=== PATIENT | male | born 1970 | race Caucasian/White ===

== ENCOUNTER 2018-05-07 15:23 | Emergency (ER) | payer OTHER ==
[2018-05-07 18:09] LABS: ABSOLUTE EOSINOPHILS # (AUTO) 0.1 10^3/uL (0.0-0.6); ABSOLUTE LYMPHOCYTES (AUTO) 0.7 10^3/uL (0.5-4.7); ABSOLUTE MONOCYTES (AUTO) 0.5 10^3/uL (0.1-1.4); ABSOLUTE NEUT (AUTO) 5.7 10^3/uL (1.7-8.2); BASOPHILS % (AUTO) 0.6 % (0-2); HEMATOCRIT 39.9 % (37.9-51.0); HEMOGLOBIN 13.5 g/dL (13.5-17.0); LYMPHOCYTES % (AUTO) 10.5 % (13-45); MEAN CORPUSCULAR HEMOGLOBIN 29.8 pg (27.0-33.4); MEAN CORPUSCULAR HGB CONC 33.8 g/dL (32.0-36.0); MEAN CORPUSCULAR VOLUME 88 fl (80-97); MONOCYTES % (AUTO) 6.8 % (3-13); RED BLOOD COUNT 4.52 10^6/uL (4.35-5.55); RED CELL DISTRIBUTION WIDTH 16.7 % (11.5-14.0); SEGMENTED NEUTROPHILS % (AUTO) 81.1 % (42-78); TOTAL CELLS COUNTED % (AUTO) 100 %; WHITE BLOOD COUNT 7.1 10^3/uL (4.0-10.5)
[2018-05-07 18:20] LABS: ALANINE AMINOTRANSFERASE 21 U/L (21-72); ALBUMIN 4.1 g/dL (3.5-5.0); ALKALINE PHOSPHATASE 110 U/L (38-126); ANION GAP 8 (5-19); ASPARTATE AMINO TRANSFERASE 34 U/L (17-59); BILIRUBIN,DIRECT 0.5 mg/dL (0.0-0.4); BILIRUBIN,TOTAL 1.9 mg/dL (0.2-1.3); BLOOD UREA NITROGEN 23 mg/dL (7-20); CALCIUM 9.2 mg/dL (8.4-10.2); CARBON DIOXIDE 24 mmol/L (22-30); CHLORIDE 111 mmol/L (98-107); GLUCOSE 96 mg/dL (75-110); LIPASE 157.2 U/L (23-300); POTASSIUM 5.6 mmol/L (3.6-5.0); SODIUM 142.5 mmol/L (137-145); TOTAL PROTEIN 7.6 g/dL (6.3-8.2)
[2018-05-07 18:38] LABS: PLATELET COUNT 77 10^3/uL (150-450)
[2018-05-07 19:38] LABS: APPEARANCE,URINE CLEAR; BILIRUBIN,URINE NEGATIVE (NEGATIVE); COLOR,URINE YELLOW; GLUCOSE, URINE NEGATIVE (NEGATIVE); KETONES,URINE TRACE mg/dL (NEGATIVE); LEUKOCYTE ESTERASE,URINE NEGATIVE (NEGATIVE); NITRITE,URINE NEGATIVE (NEGATIVE); PROTEIN,URINE NEGATIVE (NEGATIVE); URINE SPECIFIC GRAVITY 1.019
[2018-05-07] MEDS ORDERED: NORMAL SALINE 1000 ML 1,000 ML IV ONE (20:05)
[2018-05-07] MEDS ORDERED: PROMETHAZINE HCL INJ 25 MG/1 ML VIAL IV ONE (20:05)
[2018-05-07] MEDS ORDERED: OCTREOTIDE ACETATE INJ/PF 100 MCG/1 ML SDV IV ONE (20:06)
[2018-05-07] MEDS ORDERED: PANTOPRAZOLE SODIUM 40 MG VIAL IV ONE (20:08)
[2018-05-07] MEDS ORDERED: NORMAL SALINE 500 ML with OCTREOTIDE ACETATE 500 MCG IV PRN ×2 (20:08)
[2018-05-07] MEDS ORDERED: PANTOPRAZOLE SODIUM 40 MG VIAL IV PRN (20:09)
--- NOTE | 2018-05-07 20:13 | ER Document Report ---
ED Medical Screen (RME) - General Chief Complaint: Nausea/Vomiting Stated Complaint: NAUSEA Notes: Patient is a 47-year-old male with an extensive history of variceal bleeding with cirrhosis. States today he had 2 episodes of dark black stool and also vomited bright red blood. Patient states he did take at home Phenergan and the vomiting has since stopped. Patient states he has some minor epigastric abdominal pain at this time. Patient initially wanted to leave the emergency room AMA and then vomited once in the sink. I witnessed the vomiting and did see that it was bright red and had clots in nature. 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 Hoffman states he has not seen him for over a year and a half. GENERAL: Alert, interacts well. No acute distress. Pallor noted ABDOMEN: Soft, generalized tenderness all 4 quadrants and epigastric region non-distended. Bowel sounds present in all 4 quadrants. I have greeted and performed a rapid initial assessment of this patient. A comprehensive ED assessment and evaluation of the patient, analysis of test results and completion of the medical decision making process will be conducted by additional ED providers. TRAVEL OUTSIDE OF THE [place] IN LAST 30 DAYS: No - Related Data Allergies/Adverse Reactions: Penicillins Allergy (Verified 05/07/18 15:43) Past Medical History - Past Medical History Cardiac Medical History: Reports: Hx Hypertension Denies: Hx Coronary Artery Disease, Hx Heart Attack Pulmonary Medical History: Reports: Hx Pneumonia - YEARS AGO Denies: Hx Asthma, Hx Bronchitis Neurological Medical History: Denies: Hx Cerebrovascular Accident, Hx Seizures Renal/ Medical History: Denies: Hx Peritoneal Dialysis Musculoskeltal Medical History: Reports Hx Arthritis - B/L HANDS Psychiatric Medical History: Reports: Hx Depression, Hx Schizophrenia - anti social behavior Past Surgical History: Reports: Hx Orthopedic Surgery - right leg - Immunizations Hx Diphtheria, Pertussis, Tetanus Vaccination: Yes Physical Exam - Vital signs Vitals: Temp Pulse Resp BP Pulse Ox 98.2 F 97 18 122/88 H 100 05/07/18 16:14 05/07/18 16:14 05/07/18 16:14 05/07/18 16:14 05/07/18 16:14 Course - Vital Signs Vital signs: Temp Pulse Resp BP Pulse Ox 98.2 F 97 18 122/88 H 100 05/07/18 16:14 05/07/18 16:14 05/07/18 16:14 05/07/18 16:14 05/07/18 16:14 - Laboratory Result Diagrams: 05/07/18 17:51 05/07/18 17:51 Laboratory results interpreted by me: 05/07/18 05/07/18 05/07/18 17:51 17:51 18:03 RDW 16.7 H Plt Count 77 L Seg Neutrophils % 81.1 H Lymphocytes % 10.5 L Potassium 5.6 H Chloride 111 H BUN 23 H Total Bilirubin 1.9 H Direct Bilirubin 0.5 H Urine Ketones TRACE H Urine Urobilinogen 4.0 H Doctor's Discharge - Discharge Referrals: FELICIANO BLAND MD [Primary Care Provider] - Follow up as needed
--- NOTE | 2018-05-07 21:31 | ER Document Report ---
ED General - General Chief Complaint: Nausea/Vomiting Stated Complaint: NAUSEA Time Seen by Provider: 05/07/18 20:13 Notes: Patient is a 47-year-old male with a past medical history of alcoholic liver cirrhosis, does not currently drink anymore has a history of esophageal varices with one previous episode of large-volume hematemesis requiring blood transfusion and hospitalization in the ICU for over 1 week who presents with 2 small volume episodes of hematemesis as well as several melanotic stools over the last 12 hours. The patient describes a mild, aching, constant upper abdominal discomfort. Nothing improves or worsens the discomfort. He and his report that his symptoms are similar to when he had a variceal bleed in the past although not nearly as severe. The patient does note some mild lightheadedness when going from a sitting to standing position. He does not take any form of anticoagulation. TRAVEL OUTSIDE OF THE [place] IN LAST 30 DAYS: No - Related Data Allergies/Adverse Reactions: Penicillins Allergy (Verified 05/07/18 15:43) Past Medical History - General Information source: Patient - Social History Smoking Status: Current Every Day Smoker Frequency of alcohol use: Rare Drug Abuse: None Lives with: Spouse/Significant other Family History: Reviewed & Not Pertinent Patient has suicidal ideation: No Patient has homicidal ideation: No - Past Medical History Cardiac Medical History: Reports: Hx Hypertension Denies: Hx Coronary Artery Disease, Hx Heart Attack Pulmonary Medical History: Reports: Hx Pneumonia - YEARS AGO Denies: Hx Asthma, Hx Bronchitis Neurological Medical History: Denies: Hx Cerebrovascular Accident, Hx Seizures Renal/ Medical History: Denies: Hx Peritoneal Dialysis Musculoskeletal Medical History: Reports Hx Arthritis - B/L HANDS Psychiatric Medical History: Reports: Hx Depression, Hx Schizophrenia - anti social behavior Past Surgical History: Reports: Hx Orthopedic Surgery - right leg - Immunizations Hx Diphtheria, Pertussis, Tetanus Vaccination: Yes Review of Systems - Review of Systems Notes: Constitutional: Negative for fever. HENT: Negative for sore throat. Eyes: Negative for visual changes. Cardiovascular: Negative for chest pain. Respiratory: Negative for shortness of breath. Gastrointestinal: Positive for epigastric abdominal pain, hematemesis and melanotic stools Genitourinary: Negative for dysuria. Musculoskeletal: Negative for back pain. Skin: Negative for rash. Neurological: Negative for headaches, weakness or numbness. 10 point ROS negative except as marked above and in HPI. Physical Exam - Vital signs Vitals: Temp Pulse Resp BP Pulse Ox 98.2 F 97 18 122/88 H 100 05/07/18 16:14 05/07/18 16:14 05/07/18 16:14 05/07/18 16:14 05/07/18 16:14 Interpretation: Normal Notes: PHYSICAL EXAMINATION: GENERAL: Appears somewhat ill but in no acute distress HEAD: Atraumatic, normocephalic. EYES: Pupils equal round and reactive to light, extraocular movements intact, sclera anicteric, conjunctiva are normal. ENT: nares patent, oropharynx clear without exudates. Moderately dry mucous m embranes. NECK: Normal range of motion, supple without lymphadenopathy LUNGS: Breath sounds clear to auscultation bilaterally and equal. No wheezes rales or rhonchi. HEART: Regular tachycardia without murmurs ABDOMEN: Soft, nontender, normoactive bowel sounds. No guarding, no rebound. No masses appreciated. EXTREMITIES: Normal range of motion, no pitting or edema. No cyanosis. NEUROLOGICAL: No focal neurological deficits. Moves all extremities spontaneously and on command. PSYCH: Anxious, tremulous SKIN: Warm, Dry, normal turgor, no rashes or lesions noted. Course - Re-evaluation Re-evalutation: 05/07/18 21:10 Patient presents after having small volume hematemesis at home and had another episode here in the emergency department in which he did vomit up approximately 2-3 tablespoons of bright red blood that was witnessed by staff and is actually still sitting in his sink when I go into the room this is mostly bright red blood with flecks of clot. He has had 2 melanotic stools at home today. Has a history of massive volume hematemesis and almost and that context several years ago. Patient has a history of liver cirrhosis with known esophageal varices. The patient was assessed shortly after coming back to his main room. The patient has been given a bolus of octreotide and pantoprazole and started on infusions of both these medicines thereafter. His initial vitals show tachycardia, rate 119 low pressures within acceptable ranges currently 135 on 115. I did spend an extended period of time at the patient's bedside explained to the patient the need for transfer to a facility that could proceed with endoscopy more rapidly as we do not have GI product distribution specialist through the weekend. I did also contact our surgeon on-call Dr. Welch who does confirm that he does not do esophageal variceal banding. I did contact [facility] and awaiting callback for transfer. Patient is in guarded condition, will continue to reassess at regular intervals. He is currently n.p.o. 05/07/18 22:09 Patient has not had any further episodes of hematemesis. He remains moderately tachycardic although blood pressures remain within acceptable limits. I did discuss [facility], the inform they have no beds. I then spoke with Dr. Chicas at [facility] who has accepted the patient. Will continue to monitor the patient closely. 05/07/18 23:43 Patient has not had any further episodes of hematemesis. Unfortunately his heart rate has become more persistently elevated and his blood pressure has some what softened currently 101 and 76. A repeat CBC is pending. Patient has become agreeable to receiving a mild dose of anxiolysis. Will provide 1 mg of lorazepam. Continuing ongoing octreotide and Protonix infusions. Fluid bolus will be initiated. 05/08/18 01:28 Patient's hemoglobin has dropped down to 10.7. Patient has had some mild hypotension at 93 on 75, although tachycardia is moderately improving. A fluid bolus to be initiated. Type and screen has been sent. Patient remains above the transfusion threshold at this point although if his hypotension does persist we will initiate blood transfusion. 05/08/18 0145 Transport has arrived. Patient's blood pressure is continued to down trend although map remains above 65. Transport crew aware of the patient's downtr ending blood pressure. - Vital Signs Vital signs: Temp Pulse Resp BP Pulse Ox 98.7 F 97 20 84/62 L 97 05/08/18 01:46 05/07/18 21:37 05/08/18 01:48 05/08/18 01:48 05/08/18 01:48 - Laboratory Result Diagrams: 05/07/18 23:45 05/07/18 17:51 Laboratory results interpreted by me: 05/07/18 05/07/18 05/07/18 17:51 17:51 18:03 WBC RBC Hgb Hct RDW 16.7 H Plt Count 77 L Seg Neutrophils % 81.1 H Lymphocytes % 10.5 L Absolute Neutrophils Potassium 5.6 H Chloride 111 H BUN 23 H Total Bilirubin 1.9 H Direct Bilirubin 0.5 H Urine Ketones TRACE H Urine Urobilinogen 4.0 H 05/07/18 23:45 WBC 10.8 H RBC 3.55 L Hgb 10.7 L D Hct 31.6 L RDW 16.3 H Plt Count 81 L Seg Neutrophils % Lymphocytes % 12.6 L Absolute Neutrophils 8.4 H Potassium Chloride BUN Total Bilirubin Direct Bilirubin Urine Ketones Urine Urobilinogen Critical Care Note - Critical Care Note Total time excluding time spent on procedures (mins): 37 Comments: Critical care time spent obtaining history from patient or surrogate, discussions with consultants, development of treatment plan with patient or surrogate, evaluation of patient's response to treatment, examination of patient, ordering and performing treatments and interventions, ordering and review of laboratory studies, re-evaluation of patient's condition, ordering and review of radiographic studies and review of old charts Discharge - Discharge Clinical Impression: Esophageal varices Qualifiers: Esophageal varices type: secondary Esophageal varices bleeding: with bleeding Qualified Code(s): I85.11 - Secondary esophageal varices with bleeding GI bleed Qualifiers: GI bleed type/associated pathology: unspecified gastrointestinal hemorrhage type Qualified Code(s): K92.2 - Gastrointestinal hemorrhage, unspecified Condition: Fair Disposition: [facility] Referrals: FELICIANO BLAND MD [Primary Care Provider] - Follow up as needed
[2018-05-07] MEDS ORDERED: OCTREOTIDE ACETATE INJ/PF 100 MCG/1 ML SDV ONE ×2 (21:33→21:48)
[2018-05-07] MEDS ORDERED: LORAZEPAM INJ 2 MG/1 ML VIAL IV ONE (23:43)
[2018-05-07] MEDS ORDERED: RINGERS SOLUTION,LACTATED 1,000 ML IV ONE (23:43)
[2018-05-07 23:59] LABS: ABSOLUTE BASOPHILS # (AUTO) 0.1 10^3/uL (0.0-0.2); ABSOLUTE EOSINOPHILS # (AUTO) 0.1 10^3/uL (0.0-0.6); ABSOLUTE LYMPHOCYTES (AUTO) 1.4 10^3/uL (0.5-4.7); ABSOLUTE MONOCYTES (AUTO) 0.8 10^3/uL (0.1-1.4); ABSOLUTE NEUT (AUTO) 8.4 10^3/uL (1.7-8.2); BASOPHILS % (AUTO) 1.2 % (0-2); EOSINOPHILS % (AUTO) 0.9 % (0-6); HEMATOCRIT 31.6 % (37.9-51.0); LYMPHOCYTES % (AUTO) 12.6 % (13-45); MEAN CORPUSCULAR HEMOGLOBIN 30.2 pg (27.0-33.4); MEAN CORPUSCULAR VOLUME 89 fl (80-97); MONOCYTES % (AUTO) 7.3 % (3-13); RED BLOOD COUNT 3.55 10^6/uL (4.35-5.55); RED CELL DISTRIBUTION WIDTH 16.3 % (11.5-14.0); TOTAL CELLS COUNTED % (AUTO) 100 %; WHITE BLOOD COUNT 10.8 10^3/uL (4.0-10.5)
[2018-05-08 00:14] LABS: HEMOGLOBIN 10.7 g/dL (13.5-17.0); PLATELET COUNT 81 10^3/uL (150-450)
[2018-05-08] MEDS ORDERED: RINGERS SOLUTION,LACTATED 1,000 ML IV ONE (01:27)
[2018-05-08 01:51] VITALS: BP 84/62
== END 2018-05-08 02:05 | disposition short-term general hospital (02) ==
LOC: ER 15:23
DX: K70.30 Alcoholic cirrhosis of liver without ascites (principal); I85.11 Secondary esophageal varices with bleeding; R11.2 Nausea with vomiting, unspecified; I95.9 Hypotension, unspecified; R00.0 Tachycardia, unspecified; F17.200 Nicotine dependence, unspecified, uncomplicated; I10 Essential (primary) hypertension; Z88.0 Allergy status to penicillin
CPT/HCPCS: 96376; 99291; 96375; 96365; 96366; 96368; 86900; 86901; 36415; 86850; 83690; 85025; 80053; 81001; J2060; J2354; S0164; J2550; J7030; J7120 ×2

== ENCOUNTER 2018-11-30 01:57 | Observation (INO) | payer OTHER ==
[2018-11-30] MEDS ORDERED: PANTOPRAZOLE SODIUM 40 MG VIAL IV ONE (03:26)
[2018-11-30] MEDS ORDERED: ONDANSETRON HCL INJ/PF 4 MG/2 ML SDV IV ONE (03:28)
[2018-11-30] MEDS ORDERED: FAMOTIDINE INJ/PF 20 MG/2 ML SDV IV ONE (03:28)
[2018-11-30] MEDS ORDERED: TRANEXAMIC ACID INJ/PF 1,000 MG/10 ML SDV IV ONE (03:30)
[2018-11-30] MEDS ORDERED: OCTREOTIDE ACETATE INJ/PF 100 MCG/1 ML SDV IV ONE (03:31)
--- NOTE | 2018-11-30 03:58 | ER Document Report ---
ED General - General Chief Complaint: Vomiting Stated Complaint: BLACK STOOL Time Seen by Provider: 11/30/18 03:03 Primary Care Provider: FELICIANO BLAND MD [Primary Care Provider] - Follow up as needed Mode of Arrival: Ambulatory Information source: Patient, Relative TRAVEL OUTSIDE OF THE [place] IN LAST 30 DAYS: No - HPI Notes: Patient is a 48-year-old history of previous alcohol abuse but has been clean for over a year with no alcohol, history of esophageal varices and cirrhosis with variceal banding procedure x2, last one performed 7 months ago in [facility], presents to the emergency department with report of mild gas-like pain and then he vomited up bright red blood clot x2 and then the third time he vomited there was very little pink discoloration to it. He states it seemed to come from his esophagus, and was not mixed with food. He denies any chest pain or difficulty breathing. He does report mild nausea. He states 2 days ago he thought he had a dark-colored bowel movement, and it was slightly loose, althou gh he had a normal bowel movement earlier today. The patient denies any fever or chills. The patient is on no medications currently, but was previously on propranolol and Protonix and Bumex and Carafate. Patient previously had esophageal banding performed 2 years ago and then again 7 months ago. The patient was told he needed regular esophageal banding procedures done. He was unable to afford the co-pay, and has also been unable to get prescriptions for any of the medications because he could not afford the co-pay. - Related Data Allergies/Adverse Reactions: Penicillins Allergy (Verified 05/07/18 15:43) Past Medical History - General Information source: Patient - Social History Smoking Status: Unknown if Ever Smoked Chew tobacco use (# tins/day): No Frequency of alcohol use: None Drug Abuse: None Lives with: Family Family History: Reviewed & Not Pertinent Patient has suicidal ideation: No Patient has homicidal ideation: No - Past Medical History Cardiac Medical History: Reports: Hx Hypertension Denies: Hx Coronary Artery Disease, Hx Heart Attack Pulmonary Medical History: Reports: Hx Pneumonia - YEARS AGO Denies: Hx Asthma, Hx Bronchitis Neurological Medical History: Denies: Hx Cerebrovascular Accident, Hx Seizures Renal/ Medical History: Denies: Hx Peritoneal Dialysis Musculoskeletal Medical History: Reports Hx Arthritis - B/L HANDS Psychiatric Medical History: Reports: Hx Depression, Hx Schizophrenia - anti social behavior Past Surgical History: Reports: Hx Orthopedic Surgery - right leg - Immunizations Hx Diphtheria, Pertussis, Tetanus Vaccination: Yes Review of Systems - Review of Systems -: Yes All other systems reviewed and negative Physical Exam - Vital signs Vitals: Temp Pulse Resp BP Pulse Ox 98.1 F 136 H 18 117/67 99 11/30/18 02:07 11/30/18 02:07 11/30/18 02:07 11/30/18 02:07 11/30/18 02:07 - Notes Notes: PHYSICAL EXAMINATION: GENERAL: Well-appearing, well-nourished and in no acute distress. HEAD: Atraumatic, normocephalic. EYES: Pupils equal round and reactive to light, extraocular movements intact, sclera anicteric, conjunctiva are normal. ENT: Nares patent, oropharynx clear without exudates. Moist mucous membranes. NECK: Normal range of motion, supple without lymphadenopathy LUNGS: Breath sounds clear to auscultation bilaterally and equal. No wheezes rales or rhonchi. HEART: Tachycardic rate 115 and regular rhythm without murmurs ABDOMEN: Soft, nontender, nondistended abdomen. No guarding, no rebound. No masses appreciated. Rectal exam: Heme-negative. No melena. No stool in the vault. Musculoskeletal: Normal range of motion, no pitting or edema. No cyanosis. NEUROLOGICAL: Cranial nerves grossly intact. Normal speech, normal gait. Normal sensory, motor exams PSYCH: Normal mood, normal affect. SKIN: Warm, Dry, normal turgor, no rashes or lesions noted. Course - Re-evaluation Re-evalutation: 11/30/18 04:03 Patient was given IV Pepcid and IV Protonix bolus. I was unable to start the Protonix drip due to shortages. Patient was given Transexamic acid IV. The patient was also given octreotide bolus with an octreotide infusion. Patient was watched on the manager monitoring. 11/30/18 05:25 Patient was given vitamin K subcutaneous. The patient had mild coagulopathy with an INR of 1.4, consistent with previous values. Platelet count of 79 was also consistent with previous values. Hemoglobin 10.5 was consistent with prior values. There is no further hematemesis after medications. Patient was given 2 units of FFP. Discussion was undertaken with patient concerning the risk of transfusion, and he agreed after discussion of risks alternatives and benefits. We will hold back on platelet transfusion. Patient reports that he was told in May 2018 that he would need a repeat upper endoscopy to evaluate and to band the esophageal varices and 4 to 6 months. The patient is now 6 months out from his last banding. Patient has a history of " near " from esophageal variceal bleeding in the past, and the patient is unstable to go home given the recurrence of bleeding currently. It is reassuring that he is not significantly anemic and was actually heme-negative on exam. Discussion was undertaken with the patient and his significant other and they were in agreement with the patient being transferred for further care and evaluation, as GI was not not available at this facility and there was no one available for possible esophageal variceal banding. Initial call was made to [facility], but there is no available bed. 11/30/18 05:28 Call was made to [facility]. Dr. Newton accepted the patient in transfer. 11/30/18 06:21 - Vital Signs Vital signs: Temp Pulse Resp BP Pulse Ox 98.1 F 136 H 13 112/78 100 11/30/18 02:07 11/30/18 02:07 11/30/18 04:01 11/30/18 04:00 11/30/18 04:01 - Laboratory Result Diagrams: 11/30/18 03:00 11/30/18 03:00 Laboratory results interpreted by me: 11/30/18 11/30/18 11/30/18 03:00 03:00 03:00 RBC 3.67 L Hgb 10.6 L Hct 31.9 L RDW 19.2 H Plt Count 79 L Lymphocytes % 10.6 L Monocytes % 13.1 H PT 17.3 H Chloride 109 H Glucose 73 L Total Bilirubin 1.9 H Direct Bilirubin 0.6 H Albumin 3.2 L Critical Care Note - Critical Care Note Total time excluding time spent on procedures (mins): 43 Discharge - Discharge Clinical Impression: Thrombocytopenia Cirrhosis Qualifiers: Hepatic cirrhosis type: alcoholic cirrhosis Ascites presence: without ascites Qualified Code(s): K70.30 - Alcoholic cirrhosis of liver without ascites Esophageal varices with bleeding Qualifiers: Esophageal varices type: unspecified type Qualified Code(s): I85.01 - Esophageal varices with bleeding Disposition: [facility] Referrals: FELICIANO BLAND MD [Primary Care Provider] - Follow up as needed
[2018-11-30] MEDS: NORMAL SALINE 500 ML with OCTREOTIDE ACETATE 500 MCG IV PRN ×6 (04:30→18:41)
[2018-11-30 04:32] LABS: ABSOLUTE BASOPHILS # (AUTO) 0.1 10^3/uL (0.0-0.2); ABSOLUTE EOSINOPHILS # (AUTO) 0.1 10^3/uL (0.0-0.6); ABSOLUTE LYMPHOCYTES (AUTO) 0.8 10^3/uL (0.5-4.7); ABSOLUTE MONOCYTES (AUTO) 0.9 10^3/uL (0.1-1.4); ABSOLUTE NEUT (AUTO) 5.3 10^3/uL (1.7-8.2); BASOPHILS % (AUTO) 0.7 % (0-2); EOSINOPHILS % (AUTO) 1.7 % (0-6); HEMATOCRIT 31.9 % (37.9-51.0); HEMOGLOBIN 10.6 g/dL (13.5-17.0); LYMPHOCYTES % (AUTO) 10.6 % (13-45); MEAN CORPUSCULAR HGB CONC 33.3 g/dL (32.0-36.0); MEAN CORPUSCULAR VOLUME 87 fl (80-97); MONOCYTES % (AUTO) 13.1 % (3-13); RED BLOOD COUNT 3.67 10^6/uL (4.35-5.55); RED CELL DISTRIBUTION WIDTH 19.2 % (11.5-14.0); SEGMENTED NEUTROPHILS % (AUTO) 73.9 % (42-78); TOTAL CELLS COUNTED % (AUTO) 100 %; WHITE BLOOD COUNT 7.2 10^3/uL (4.0-10.5)
[2018-11-30 04:46] LABS: INTERNATIONAL RATION (INR) 1.41; PROTHROMBIN TIME 17.3 SEC (11.4-15.4)
[2018-11-30 05:00] LABS: PLATELET COUNT 79 10^3/uL (150-450)
[2018-11-30 05:05] LABS: ALBUMIN 3.2 g/dL (3.5-5.0); ALKALINE PHOSPHATASE 117 U/L (38-126); ANION GAP 7 (5-19); ASPARTATE AMINO TRANSFERASE 40 U/L (17-59); BILIRUBIN,DIRECT 0.6 mg/dL (0.0-0.4); BILIRUBIN,TOTAL 1.9 mg/dL (0.2-1.3); BLOOD UREA NITROGEN 13 mg/dL (7-20); CALCIUM 9.1 mg/dL (8.4-10.2); CARBON DIOXIDE 25 mmol/L (22-30); CHLORIDE 109 mmol/L (98-107); GLUCOSE 73 mg/dL (75-110); TOTAL PROTEIN 6.7 g/dL (6.3-8.2)
[2018-11-30] MEDS ORDERED: PHYTONADIONE INJ 10 MG/1 ML AMPULE SUBCUT ONE (05:22)
[2018-11-30] MEDS ORDERED: NORMAL SALINE 250 ML IV PRN ×2 (05:57)
[2018-11-30] MEDS ORDERED: POTASSI CL 20 MEQ/D5-1/2NS 1L 1,000 ML IV ONE (06:22)
[2018-11-30] MEDS: PANTOPRAZOLE SODIUM 40 MG VIAL IV PRN ×2 (06:29→16:20)
[2018-11-30] MEDS ORDERED: NICOTINE 21 MG/24 HR PATCH.TD24 TD ONE (09:09)
[2018-11-30] MEDS ORDERED: DEXTROSE 50%-WATER 25 GM/50 ML DISP.SYRIN IV PRN ×2 (17:26)
[2018-11-30] MEDS ORDERED: ONDANSETRON HCL INJ/PF 4 MG/2 ML SDV IV PRN (17:26)
[2018-11-30] MEDS ORDERED: GLUCAGON,HUMAN RECOMB 1 MG INJ SUBCUT PRN (17:26)
[2018-11-30] MEDS ORDERED: ACETAMINOPHEN 325 MG TABLET PO PRN (17:26)
[2018-11-30] MEDS ORDERED: DEXTROSE 40% GEL 15 GM TUBE PO PRN ×2 (17:26)
[2018-11-30] MEDS ORDERED: HYDRALAZINE HCL INJ/PF 20 MG/1 ML SDV IV PRN (17:40)
--- NOTE | 2018-11-30 17:41 | PDOC CONSULTATION ---
Consultation Consult Date: 11/30/18 Provider Consulted: ITZ CANO Consult reason:: GI bleed History of Present Illness Admission Date/PCP: 11/30/18 17:23 FELICIANO BLAND MD History of Present Illness: LISA NEWTON is a 48 year old male I am asked to see this patient who came in overnight had seen Dr Bland in the past patient denies any recent etoh use apparently had had esophageal variceal banding at [place] about half year ago came in hematemesis and melena In the ED, arrangements were made for transfer to tertiary institution on PPI and Octreotide however no beds available and the question of whether he can be managed here at [facility] repeat H/H is pending however Hgb has been relatively stable now being admitted to the Hospitalist service can plan on EGD tomorrow will probably need Propofol sedation Past Medical History Cardiac Medical History: Reports: Hypertension Denies: Coronary Artery Disease, Myocardial Infarction Pulmonary Medical History: Reports: Pneumonia - YEARS AGO Denies: Asthma, Bronchitis Neurological Medical History: Denies: Seizures Musculoskeltal Medical History: Reports: Arthritis - B/L HANDS Psychiatric Medical History: Reports: Depression Hematology: Denies: Anemia Past Surgical History Past Surgical History: Reports: Orthopedic Surgery - right leg Social History Lives with: Family Smoking Status: Unknown if Ever Smoked Frequency of Alcohol Use: Heavy Family History Family History: Reviewed & Not Pertinent Parental Family History Reviewed: Yes Children Family History Reviewed: Unknown Sibling(s) Family History Reviewed.: Unknown Medication/Allergy Home Medications: Bumetanide [Bumex 1 mg Tablet] 1 mg PO DAILY #30 tablet 06/11/15 Folic Acid [Folvite 1 mg Tablet] 1 mg PO DAILY #90 tablet 06/11/15 Pantoprazole Sodium [Protonix] 40 mg PO BID #60 tablet. 06/11/15 Promethazine HCl [Phenergan 25 mg Tablet] 1 - 2 tab PO Q6H PRN #30 tablet 06/11/15 Tiotropium [place] [Spiriva Handihaler 5 Cap/Kit (18 Mcg/Cap)] 1 cap IH DAILY #1 kit 06/11/15 Thiamine HCl [Thiamine 100 mg Tablet] 100 mg PO DAILY 08/27/15 Propranolol HCl [Inderal 10 mg Tablet] 20 mg PO Q12 08/28/15 Sucralfate [Carafate Susp 1 Gm/10 Ml Udcup] 1 gm PO Q6 08/28/15 Allergies/Adverse Reactions: Penicillins Allergy (Verified 05/07/18 15:43) Review of Systems Constitutional: ABSENT: fever(s), headache(s), night sweats Eyes: ABSENT: visual disturbances Ears: ABSENT: hearing changes Nose, Mouth, and Throat: ABSENT: mouth pain, sore throat Cardiovascular: ABSENT: edema, orthropnea Respiratory: ABSENT: dyspnea, hemoptysis Gastrointestinal: PRESENT: melena. ABSENT: dysphagia Genitourinary: ABSENT: dysuria, hematuria Musculoskeletal: ABSENT: muscle weakness Neurological: ABSENT: syncope, tingling, tremor(s), vertigo Endocrine: ABSENT: polydipsia, polyphagia, polyuria Physical Exam Vital Signs: Temp Pulse Resp BP Pulse Ox 98.1 F 97 19 122/90 H 100 11/30/18 02:07 11/30/18 13:30 11/30/18 13:30 11/30/18 13:00 11/30/18 13:30 Intake & Output 11/29/18 11/30/18 12/01/18 06:59 06:59 06:59 Intake Total 834 Balance 834 Weight 80.1 kg General appearance: PRESENT: no acute distress, well-developed, well-nourished Head exam: PRESENT: atraumatic, normocephalic Eye exam: PRESENT: EOMI, PERRLA. ABSENT: nystagmus, periorbital swelling Mouth exam: PRESENT: moist, neck supple Neck exam: ABSENT: meningismus, tenderness, thyromegaly Respiratory exam: PRESENT: symmetrical, unlabored. ABSENT: chest wall tenderness, wheezes Cardiovascular exam: PRESENT: RRR, +S1, +S2 GI/Abdominal exam: PRESENT: soft. ABSENT: Roberson's sign, rebound, rigid Extremities exam: ABSENT: clubbing, joint swelling, tenderness Musculoskeletal exam: PRESENT: full ROM Neurological exam: PRESENT: oriented to time, oriented to situation, CN II-XII grossly intact Psychiatric exam: PRESENT: appropriate affect, normal mood Focused psych exam: ABSENT: restlessness Skin exam: PRESENT: normal color. ABSENT: mottled, pallor, urticaria, vesicles Results Laboratory Results: 11/30/18 03:00 11/30/18 03:00 11/30/18 11/30/18 11/30/18 03:00 03:00 03:00 WBC 7.2 RBC 3.67 L Hgb 10.6 L Hct 31.9 L MCV 87 MCH 29.0 MCHC 33.3 RDW 19.2 H Plt Count 79 L Seg Neutrophils % 73.9 Lymphocytes % 10.6 L Monocytes % 13.1 H Eosinophils % 1.7 Basophils % 0.7 Absolute Neutrophils 5.3 Absolute Lymphocytes 0.8 Absolute Monocytes 0.9 Absolute Eosinophils 0.1 Absolute Basophils 0.1 Sodium 141.4 Potassium 4.0 Chloride 109 H Carbon Dioxide 25 Anion Gap 7 BUN 13 Creatinine 1.03 Est GFR ( Amer) > 60 Est GFR (Non-Af Amer) > 60 Glucose 73 L Calcium 9.1 Total Bilirubin 1.9 H AST 40 Alkaline Phosphatase 117 Total Protein 6.7 Albumin 3.2 L Lipase 258.4 Blood Type A NEGATIVE Antibody Screen NEGATIVE Assessment & Plan - Diagnosis (1) GI bleed Qualifiers: GI bleed type/associated pathology: unspecified gastrointestinal hemorrhage type Qualified Code(s): K92.2 - Gastrointestinal hemorrhage, unspecified Plan: plan is to admit patient here since no bed availability at another institution will follow up on H/H continue both PPI and octreotide for now patient will need EGD with possible banding in the am Risks, benefits and alternatives are discussed will need Propofol sedation INR is normal - Time Time Spent: 50 to 70 Minutes
--- NOTE | 2018-11-30 17:51 | PDOC H&P ---
History of Present Illness Admission Date/PCP: 11/30/18 17:23 FELICIANO BLAND MD Patient complains of: Came with complaints of vomiting blood and also passing blood per rectum from this morning. History of Present Illness: LISA NEWTON is a 48 year old male history of liver cirrhosis secondary to heavy alcohol use, history of variceal bleed status post banding twice, anxiety depression not on home medications, chronic smoker came to the emergency room with complaints of vomiting blood from this morning after came to the emergency room he started passing initially dark-colored blood and bright-colored blood per rectum. Hemoglobin was 10.6 at the time of presentation and he was given 3 units of FFP's. [facility] unfortunately they do not have any beds available for next 24 to 48 hours. Medical consult was called for admission and consultation with Dr. Suarez. Past Medical History Cardiac Medical History: Reports: Hypertension Denies: Coronary Artery Disease, Myocardial Infarction Pulmonary Medical History: Reports: Pneumonia - YEARS AGO Denies: Asthma, Bronchitis Neurological Medical History: Denies: Seizures GI Medical History: Reports: Cirrhosis Musculoskeltal Medical History: Reports: Arthritis - B/L HANDS Psychiatric Medical History: Reports: Depression Hematology: Denies: Anemia Past Surgical History Past Surgical History: Reports: Orthopedic Surgery - right leg, Other - Banding of the esophageal varices twice Social History Information Source: Patient Lives with: Family Smoking Status: Current Every Day Smoker Frequency of Alcohol Use: Heavy Hx Recreational Drug Use: No Hx Prescription Drug Abuse: No - Advance Directive Resuscitation Status: Full Code Family History Family History: Reviewed & Not Pertinent Parental Family History Reviewed: Yes - Mother has history of stomach cancer father has a history of lung cancer. Children Family History Reviewed: Yes Sibling(s) Family History Reviewed.: Yes Medication/Allergy Home Medications: Bumetanide [Bumex 1 mg Tablet] 1 mg PO DAILY #30 tablet 06/11/15 Folic Acid [Folvite 1 mg Tablet] 1 mg PO DAILY #90 tablet 06/11/15 Pantoprazole Sodium [Protonix] 40 mg PO BID #60 tablet. 06/11/15 Promethazine HCl [Phenergan 25 mg Tablet] 1 - 2 tab PO Q6H PRN #30 tablet 06/11/15 Tiotropium [place] [Spiriva Handihaler 5 Cap/Kit (18 Mcg/Cap)] 1 cap IH DAILY #1 kit 06/11/15 Thiamine HCl [Thiamine 100 mg Tablet] 100 mg PO DAILY 08/27/15 Propranolol HCl [Inderal 10 mg Tablet] 20 mg PO Q12 08/28/15 Sucralfate [Carafate Susp 1 Gm/10 Ml Udcup] 1 gm PO Q6 08/28/15 Allergies/Adverse Reactions: Penicillins Allergy (Verified 05/07/18 15:43) Review of Systems Constitutional: ABSENT: fatigue, fever(s), weakness Eyes: ABSENT: visual disturbances Ears: ABSENT: hearing changes Nose, Mouth, and Throat: ABSENT: sore throat Cardiovascular: ABSENT: chest pain, dyspnea on exertion, orthropnea, palpitations Respiratory: ABSENT: cough, dyspnea, hemoptysis Gastrointestinal: PRESENT: other - Came in with complaints of vomiting bright- colored blood and passing bright blood per rectum.. ABSENT: heartburn Musculoskeletal: ABSENT: joint swelling Integumentary: ABSENT: rash, wounds Neurological: ABSENT: abnormal gait, abnormal speech, confusion, dizziness, focal weakness, syncope Psychiatric: ABSENT: anxiety, depression, homidical ideation, suicidal ideation Physical Exam Vital Signs: Temp Pulse Resp BP Pulse Ox 98.1 F 97 19 122/90 H 100 11/30/18 02:07 11/30/18 13:30 11/30/18 13:30 11/30/18 13:00 11/30/18 13:30 Intake & Output 11/29/18 11/30/18 12/01/18 06:59 06:59 06:59 Intake Total 834 Balance 834 Weight 80.1 kg General appearance: PRESENT: no acute distress, cooperative Head exam: PRESENT: atraumatic Eye exam: PRESENT: PERRLA Ear exam: PRESENT: normal external ear exam Mouth exam: PRESENT: dry mucosa Teeth exam: PRESENT: poor dentation Neck exam: ABSENT: carotid bruit, JVD, lymphadenopathy, thyromegaly Respiratory exam: PRESENT: clear to auscultation onelia. ABSENT: rales, rhonchi, wheezes Cardiovascular exam: PRESENT: RRR. ABSENT: diastolic murmur, rubs, systolic murmur GI/Abdominal exam: PRESENT: normal bowel sounds, soft. ABSENT: distended, guarding, mass, organolmegaly, rebound, tenderness Rectal exam: PRESENT: deferred Extremities exam: PRESENT: full ROM. ABSENT: calf tenderness, clubbing, pedal edema Neurological exam: PRESENT: alert Psychiatric exam: PRESENT: appropriate affect, normal mood. ABSENT: homicidal ideation, suicidal ideation Results Laboratory Results: 11/30/18 03:00 11/30/18 03:00 11/30/18 11/30/18 11/30/18 03:00 03:00 03:00 WBC 7.2 RBC 3.67 L Hgb 10.6 L Hct 31.9 L MCV 87 MCH 29.0 MCHC 33.3 RDW 19.2 H Plt Count 79 L Seg Neutrophils % 73.9 Lymphocytes % 10.6 L Monocytes % 13.1 H Eosinophils % 1.7 Basophils % 0.7 Absolute Neutrophils 5.3 Absolute Lymphocytes 0.8 Absolute Monocytes 0.9 Absolute Eosinophils 0.1 Absolute Basophils 0.1 Sodium 141.4 Potassium 4.0 Chloride 109 H Carbon Dioxide 25 Anion Gap 7 BUN 13 Creatinine 1.03 Est GFR ( Amer) > 60 Est GFR (Non-Af Amer) > 60 Glucose 73 L Calcium 9.1 Total Bilirubin 1.9 H AST 40 Alkaline Phosphatase 117 Total Protein 6.7 Albumin 3.2 L Lipase 258.4 Blood Type A NEGATIVE Antibody Screen NEGATIVE Assessment and Plan - Diagnosis (1) Esophageal varices with bleeding Qualifiers: Esophageal varices type: unspecified type Qualified Code(s): I85.01 - Esophageal varices with bleeding Is this a current diagnosis for this admission?: Yes Plan: [id number] male with history of cirrhosis of the liver and esophageal varices status post banding twice came to the emergency room with complaints of vomiting bright-colored blood and passing bright-colored blood per rectum hemoglobin is 10.6 this morning repeat CBC is pending medical consult was called for admission he is going to be in the telemetry he is going to be on octreotide drip and also on Protonix 40 mg IV twice daily GI consult was requested be going to do the CBC now and repeat the CBC in the morning type and crossmatch and 2 units are pending blood transfusion. Not on DVT prophylaxis because of active bleeding. He is on SCDs. Probably he will go to EGD tomorrow and is n.p.o. f rom an hour. Consultation with Dr. Suarez was requested. (2) Cirrhosis Qualifiers: Hepatic cirrhosis type: alcoholic cirrhosis Ascites presence: without ascites Qualified Code(s): K70.30 - Alcoholic cirrhosis of liver without ascites Is this a current diagnosis for this admission?: No Plan: 11/30/2018-patient has history of cirrhosis of the liver secondary to heavy alcohol drinking as per the patient he stopped her quit drinking 2 years ago. Urine drug screens was requested. Ammonia levels is going to be checked. Patient alert awake oriented no signs of any hepatic encephalopathy. No signs of any ascites. (3) Anemia Qualifiers: Other causes of anemia: acute posthemorrhagic Is this a current diagnosis for this admission?: Yes Plan: 11/30/2018-patient hemoglobin is 10.6 anemia most likely secondary to use of variceal bleeding. (4) Thrombocytopenia Is this a current diagnosis for this admission?: Yes Plan: 11/30/2018-patient's platelet count is to 76,000, thrombocytopenia most likely secondary to liver failure. (5) Tobacco abuse Is this a current diagnosis for this admission?: No Plan: 11/30/2018-patient has history of chronic smoking is a current smoker smoking for more than 40 years. Smoking counseling was provided for more than 20 minutes he is on nicotine patch. - Time Time Spent with patient: 25-34 minutes Smoking Cessation Education: over 10 minutes Anticipated discharge: Home
[2018-11-30 18:20] LABS: HEMATOCRIT 26.7 % (37.9-51.0); HEMOGLOBIN 9.1 g/dL (13.5-17.0); MEAN CORPUSCULAR HEMOGLOBIN 29.3 pg (27.0-33.4); MEAN CORPUSCULAR VOLUME 86 fl (80-97); RED CELL DISTRIBUTION WIDTH 18.4 % (11.5-14.0); WHITE BLOOD COUNT 4.5 10^3/uL (4.0-10.5)
[2018-11-30 18:25] LABS: INTERNATIONAL RATION (INR) 1.37
[2018-11-30] MEDS: NORMAL SALINE 1000 ML 1,000 ML IV PRN (18:31)
[2018-11-30 18:33] LABS: ANION GAP 9 (5-19); BLOOD UREA NITROGEN 20 mg/dL (7-20); CALCIUM 8.6 mg/dL (8.4-10.2); CARBON DIOXIDE 21 mmol/L (22-30); CHLORIDE 110 mmol/L (98-107); GLUCOSE 117 mg/dL (75-110)
[2018-11-30 18:36] LABS: PLATELET COUNT 61 10^3/uL (150-450)
[2018-11-30] MEDS: PANTOPRAZOLE SODIUM 40 MG VIAL IV SCH (21:16)
[2018-11-30 21:54] LABS: APPEARANCE,URINE CLEAR; BILIRUBIN,URINE NEGATIVE (NEGATIVE); COLOR,URINE YELLOW; GLUCOSE, URINE NEGATIVE (NEGATIVE); KETONES,URINE NEGATIVE (NEGATIVE); LEUKOCYTE ESTERASE,URINE NEGATIVE (NEGATIVE); NITRITE,URINE NEGATIVE (NEGATIVE); PROTEIN,URINE NEGATIVE (NEGATIVE); URINE SPECIFIC GRAVITY 1.015; UROBILINOGEN,URINE NEGATIVE mg/dL (<2.0)
[2018-11-30 22:10] LABS: URINE AMPHETAMINES SCREEN NEGATIVE; URINE BARBITURATES SCREEN NEGATIVE; URINE BENZODIAZEPINES SCREEN NEGATIVE; URINE COCAINE SCREEN NEGATIVE; URINE MARIJUANA (THC) SCREEN NEGATIVE; URINE METHADONE SCREEN NEGATIVE; URINE PHENCYCLIDINE SCREEN NEGATIVE
[2018-12-01] MEDS: NORMAL SALINE 500 ML with OCTREOTIDE ACETATE 500 MCG IV PRN ×6 (01:07→18:04)
[2018-12-01 06:32] LABS: INTERNATIONAL RATION (INR) 1.41; PROTHROMBIN TIME 17.4 SEC (11.4-15.4)
[2018-12-01 06:33] LABS: PARTIAL THROMBOPLASTIN TIME 39.7 SEC (23.5-35.8)
[2018-12-01 06:36] LABS: ABSOLUTE EOSINOPHILS # (AUTO) 0.1 10^3/uL (0.0-0.6); ABSOLUTE LYMPHOCYTES (AUTO) 0.8 10^3/uL (0.5-4.7); ABSOLUTE MONOCYTES (AUTO) 0.4 10^3/uL (0.1-1.4); ABSOLUTE NEUT (AUTO) 1.9 10^3/uL (1.7-8.2); BASOPHILS % (AUTO) 0.5 % (0-2); EOSINOPHILS % (AUTO) 3.4 % (0-6); HEMATOCRIT 25.1 % (37.9-51.0); HEMOGLOBIN 8.5 g/dL (13.5-17.0); LYMPHOCYTES % (AUTO) 24.7 % (13-45); MEAN CORPUSCULAR HEMOGLOBIN 29.3 pg (27.0-33.4); MEAN CORPUSCULAR HGB CONC 33.8 g/dL (32.0-36.0); MEAN CORPUSCULAR VOLUME 87 fl (80-97); MONOCYTES % (AUTO) 13.2 % (3-13); RED CELL DISTRIBUTION WIDTH 18.8 % (11.5-14.0); SEGMENTED NEUTROPHILS % (AUTO) 58.2 % (42-78); TOTAL CELLS COUNTED % (AUTO) 100 %; WHITE BLOOD COUNT 3.3 10^3/uL (4.0-10.5)
[2018-12-01 06:48] LABS: ALKALINE PHOSPHATASE 105 U/L (38-126); ANION GAP 5 (5-19); ASPARTATE AMINO TRANSFERASE 44 U/L (17-59); BILIRUBIN,DIRECT 0.5 mg/dL (0.0-0.4); BILIRUBIN,TOTAL 2.3 mg/dL (0.2-1.3); BLOOD UREA NITROGEN 18 mg/dL (7-20); CALCIUM 8.2 mg/dL (8.4-10.2); CARBON DIOXIDE 21 mmol/L (22-30); CHLORIDE 114 mmol/L (98-107); CHOLESTEROL 138.04 mg/dL (0-200); GLUCOSE 84 mg/dL (75-110); POTASSIUM 4.1 mmol/L (3.6-5.0); TOTAL PROTEIN 6.2 g/dL (6.3-8.2); TRIGLYCERIDES 114 mg/dL (<150)
[2018-12-01 06:59] LABS: DIRECT LDL 113 mg/dL (<100)
[2018-12-01 07:06] LABS: PLATELET COUNT 61 10^3/uL (150-450)
[2018-12-01] MEDS: NORMAL SALINE 1000 ML 1,000 ML IV PRN ×2 (08:09→15:04)
[2018-12-01] MEDS: MAGNESIUM SULFATE/D5W 1 GM/100 ML RTUPB IV SCH ×2 (08:49→09:56)
[2018-12-01] MEDS: PANTOPRAZOLE SODIUM 40 MG VIAL IV SCH ×2 (09:17→22:05)
[2018-12-01] MEDS ORDERED: LIDOCAINE 2% INJ-PF (100 MG/5 ML) SYRINGE ONE (13:26)
[2018-12-01] MEDS ORDERED: PROPOFOL INJ 200 MG/20 ML VIAL IV ONE (13:26)
--- NOTE | 2018-12-01 13:36 | PDOC PROGRESS REPORT ---
Subjective Progress Note for:: 12/01/18 Subjective:: This is a 48 year old male history of liver cirrhosis secondary to heavy alcohol use, history of variceal bleed status post banding twice, anxiety depression not on home medications, chronic smoker who presented with an hematochezia. Patient was admitted for GI bleed. No acute event overnight. This morning, patient says that he had a BM and his stool was still a little tarry. Denies abdominal pain. No hematemesis. Patient is scheduled for an EGD later today by GI. Reason For Visit: GI BLEED Physical Exam Vital Signs: Temp Pulse Resp BP Pulse Ox 97.8 F 78 18 143/97 H 100 12/01/18 07:23 12/01/18 07:23 12/01/18 07:23 12/01/18 07:23 12/01/18 07:23 Intake & Output 11/30/18 12/01/18 12/02/18 06:59 06:59 06:59 Intake Total 2816 1600 Balance 2816 1600 Weight 176 lb 9.444 oz 185 lb 13.595 oz General appearance: PRESENT: no acute distress, well-developed, well-nourished Head exam: PRESENT: atraumatic, normocephalic Eye exam: PRESENT: conjunctiva pink, EOMI, PERRLA. ABSENT: scleral icterus Ear exam: PRESENT: normal external ear exam Mouth exam: PRESENT: moist, tongue midline Neck exam: ABSENT: carotid bruit, JVD, lymphadenopathy, thyromegaly Respiratory exam: PRESENT: clear to auscultation onelia. ABSENT: rales, rhonchi, wheezes Cardiovascular exam: PRESENT: RRR. ABSENT: diastolic murmur, rubs, systolic murmur Pulses: PRESENT: normal dorsalis pedis pul GI/Abdominal exam: PRESENT: normal bowel sounds, soft. ABSENT: distended, guarding, mass, organolmegaly, rebound, tenderness Rectal exam: PRESENT: deferred Extremities exam: PRESENT: full ROM. ABSENT: calf tenderness, clubbing, pedal edema Neurological exam: PRESENT: alert, awake, oriented to person, oriented to place, oriented to time, oriented to situation, CN II-XII grossly intact. ABSENT: motor sensory deficit Results Laboratory Results: 12/01/18 06:10 12/01/18 06:10 08/11/30/18 11/30/18 03:00 18:00 18:00 WBC 4.5 RBC 3.10 L Hgb 9.1 L Hct 26.7 L MCV 86 MCH 29.3 MCHC 34.0 RDW 18.4 H Plt Count 61 L Seg Neutrophils % Lymphocytes % Monocytes % Eosinophils % Basophils % Absolute Neutrophils Absolute Lymphocytes Absolute Monocytes Absolute Eosinophils Absolute Basophils Sodium 140.1 Potassium 5.0 D Chloride 110 H Carbon Dioxide 21 L Anion Gap 9 BUN 20 Creatinine 1.22 Est GFR ( Amer) > 60 Est GFR (Non-Af Amer) > 60 Glucose 117 H Calcium 8.6 Magnesium Total Bilirubin AST Alkaline Phosphatase Ammonia Total Protein Albumin Triglycerides Cholesterol LDL Cholesterol Direct VLDL Cholesterol HDL Cholesterol TSH Urine Color Urine Appearance Urine pH Ur Specific Martin Urine Protein Urine Glucose (UA) Urine Ketones Urine Blood Urine Nitrite Ur Leukocyte Esterase Urine WBC (Auto) Urine RBC (Auto) Blood Type A NEGATIVE Antibody Screen NEGATIVE 11/30/18 12/01/18 12/01/18 21:25 06:10 06:10 WBC 3.3 L RBC 2.90 L Hgb 8.5 L Hct 25.1 L MCV 87 MCH 29.3 MCHC 33.8 RDW 18.8 H Plt Count 61 L Seg Neutrophils % 58.2 Lymphocytes % 24.7 Monocytes % 13.2 H Eosinophils % 3.4 Basophils % 0.5 Absolute Neutrophils 1.9 Absolute Lymphocytes 0.8 Absolute Monocytes 0.4 Absolute Eosinophils 0.1 Absolute Basophils 0.0 Sodium 140.2 Potassium 4.1 Chloride 114 H Carbon Dioxide 21 L Anion Gap 5 BUN 18 Creatinine 1.15 Est GFR ( Amer) > 60 Est GFR (Non-Af Amer) > 60 Glucose 84 Calcium 8.2 L Magnesium 1.3 L Total Bilirubin 2.3 H AST 44 Alkaline Phosphatase 105 Ammonia Total Protein 6.2 L Albumin 3.0 L Triglycerides 114 Cholesterol 138.04 LDL Cholesterol Direct 113 H VLDL Cholesterol 23.0 HDL Cholesterol 17 L TSH Urine Color YELLOW Urine Appearance CLEAR Urine pH 7.0 Ur Specific Martin 1.015 Urine Protein NEGATIVE Urine Glucose (UA) NEGATIVE Urine Ketones NEGATIVE Urine Blood NEGATIVE Urine Nitrite NEGATIVE Ur Leukocyte Esterase NEGATIVE Urine WBC (Auto) 1 Urine RBC (Auto) 1 Blood Type Antibody Screen 12/01/18 12/01/18 06:10 06:10 WBC RBC Hgb Hct MCV MCH MCHC RDW Plt Count Seg Neutrophils % Lymphocytes % Monocytes % Eosinophils % Basophils % Absolute Neutrophils Absolute Lymphocytes Absolute Monocytes Absolute Eosinophils Absolute Basophils Sodium Potassium Chloride Carbon Dioxide Anion Gap BUN Creatinine Est GFR ( Amer) Est GFR (Non-Af Amer) Glucose Calcium Magnesium Total Bilirubin AST Alkaline Phosphatase Ammonia 42.0 H Total Protein Albumin Triglycerides Cholesterol LDL Cholesterol Direct VLDL Cholesterol HDL Cholesterol TSH 1.52 Urine Color Urine Appearance Urine pH Ur Specific Martin Urine Protein Urine Glucose (UA) Urine Ketones Urine Blood Urine Nitrite Ur Leukocyte Esterase Urine WBC (Auto) Urine RBC (Auto) Blood Type Antibody Screen Assessment and Plan - Diagnosis (1) Upper GI bleed Is this a current diagnosis for this admission?: Yes Plan: Patient is scheduled for an EGD later today by GI. Continue Protonix and Sandostatin for now. (2) Acute blood loss anemia Is this a current diagnosis for this admission?: Yes Plan: Hb went down from 10.5 to 8.5. He received 2 u of FFP in the ER. (3) Cirrhosis Qualifiers: Hepatic cirrhosis type: alcoholic cirrhosis Ascites presence: without ascites Qualified Code(s): K70.30 - Alcoholic cirrhosis of liver without ascites Is this a current diagnosis for this admission?: Yes Plan: Patient says he has stopped drinking alcohol for more than a year. (4) Thrombocytopenia Is this a current diagnosis for this admission?: Yes Plan: Likely related to cirrhosis. - Time Time Spent with patient: 25-34 minutes
[2018-12-01] MEDS ORDERED: MEPERIDINE HCL/PF INJ 25 MG/1 ML DISP.SYRIN IV PRN (13:50)
[2018-12-01] MEDS ORDERED: FENTANYL CITRATE INJ/PF 100 MCG/2 ML AMPUL IV PRN ×3 (13:50)
[2018-12-01] MEDS ORDERED: PROMETHAZINE HCL INJ 25 MG/1 ML VIAL IV PRN ×2 (13:50)
[2018-12-01] MEDS ORDERED: DIPHENHYDRAMINE HCL 50 MG/ML VIAL IV PRN (13:50)
--- NOTE | 2018-12-01 14:45 | Operative Report ---
Operative Report DATE OF SURGERY: 12/01/18 Operative Report: Risks, benefits and alternatives are discussed with the patientttttttttt he is taken to the OR propofol is administered The scope is advanced into the esophagus and intubated the esophagus, stomach and duodenum are examined PREOPERATIVE DIAGNOSIS: GI bleeding POSTOPERATIVE DIAGNOSIS: antral vascular ectasias. 2 esophageal grade 3 variceal columns, not actively bleeding OPERATION: EGD with control of hemorrhage with Hemospray use. EGD with esophageal variceal band ligation SURGEON: ITZ CANO ANESTHESIA: LMAC TISSUE REMOVED OR ALTERED: none COMPLICATIONS: none ESTIMATED BLOOD LOSS: none INTRAOPERATIVE FINDINGS: as noted above PROCEDURE: patient tolerated the procedure well no immediate post procedure complications he is sent to [facility] in good condition resume previous diet and activity level follow up on H/H and transfuse as necessary
[2018-12-01] MEDS ORDERED: NICOTINE 21 MG/24 HR PATCH.TD24 TD ONE (23:00)
[2018-12-02] MEDS: NORMAL SALINE 500 ML with OCTREOTIDE ACETATE 500 MCG IV PRN ×4 (01:22→08:47)
[2018-12-02] MEDS: NORMAL SALINE 1000 ML 1,000 ML IV PRN (04:37)
[2018-12-02 05:41] LABS: ABSOLUTE EOSINOPHILS # (AUTO) 0.1 10^3/uL (0.0-0.6); ABSOLUTE LYMPHOCYTES (AUTO) 0.6 10^3/uL (0.5-4.7); ABSOLUTE MONOCYTES (AUTO) 0.3 10^3/uL (0.1-1.4); ABSOLUTE NEUT (AUTO) 1.8 10^3/uL (1.7-8.2); BASOPHILS % (AUTO) 0.6 % (0-2); EOSINOPHILS % (AUTO) 2.4 % (0-6); HEMOGLOBIN 8.6 g/dL (13.5-17.0); LYMPHOCYTES % (AUTO) 21.6 % (13-45); MEAN CORPUSCULAR HEMOGLOBIN 29.8 pg (27.0-33.4); MEAN CORPUSCULAR HGB CONC 34.4 g/dL (32.0-36.0); MEAN CORPUSCULAR VOLUME 86 fl (80-97); MONOCYTES % (AUTO) 11.3 % (3-13); RED BLOOD COUNT 2.89 10^6/uL (4.35-5.55); RED CELL DISTRIBUTION WIDTH 18.6 % (11.5-14.0); SEGMENTED NEUTROPHILS % (AUTO) 64.1 % (42-78); TOTAL CELLS COUNTED % (AUTO) 100 %; WHITE BLOOD COUNT 2.9 10^3/uL (4.0-10.5)
[2018-12-02 05:51] LABS: ANION GAP 7 (5-19); BLOOD UREA NITROGEN 16 mg/dL (7-20); CALCIUM 8.1 mg/dL (8.4-10.2); CARBON DIOXIDE 22 mmol/L (22-30); CHLORIDE 111 mmol/L (98-107); GLUCOSE 95 mg/dL (75-110); POTASSIUM 4.2 mmol/L (3.6-5.0)
[2018-12-02 06:58] LABS: PLATELET COUNT 66 10^3/uL (150-450)
[2018-12-02] MEDS: PANTOPRAZOLE SODIUM 40 MG VIAL IV SCH (09:57)
[2018-12-02 11:21] VITALS: BP 120/68
[2018-12-02] MEDS ORDERED: HYDRALAZINE HCL INJ/PF 20 MG/1 ML SDV IV PRN (11:30)
[2018-12-02] MEDS ORDERED: ONDANSETRON HCL INJ/PF 4 MG/2 ML SDV IV PRN (11:30)
--- NOTE | 2018-12-03 18:58 | PDOC DISCHARGE SUMMARY ---
General - Admit/Disc Date/PCP Admission Date/Primary Care Provider: 11/30/18 17:23 FELICIANO BLAND MD Discharge Date: 12/01/18 - Discharge Diagnosis (1) Upper GI bleed Is this a current diagnosis for this admission?: Yes (2) Acute blood loss anemia Is this a current diagnosis for this admission?: Yes (3) Cirrhosis Is this a current diagnosis for this admission?: Yes (4) Thrombocytopenia Is this a current diagnosis for this admission?: Yes - Additional Information Resuscitation Status: Full Code Discharge Diet: Cardiac Discharge Activity: Activity As Tolerated Prescriptions: Pantoprazole Sodium [Protonix [address] Tablet] 40 mg PO QAM #60 tablet. Propranolol HCl [Inderal 10 mg Tablet] 10 mg PO Q12 #60 tab Home Medications: Pantoprazole Sodium [Protonix [address] Tablet] 40 mg PO QAM #60 tablet. 12/02/18 Propranolol HCl [Inderal 10 mg Tablet] 10 mg PO Q12 #60 tab 12/02/18 History of Present Illness History of Present Illness: Admitting hospitalist's H&P: LISA NEWTON is a 48 year old male history of liver cirrhosis secondary to heavy alcohol use, history of variceal bleed status post banding twice, anxiety depression not on home medications, chronic smoker came to the emergency room with complaints of vomiting blood from this morning after came to the emergency room he started passing initially dark-colored blood and bright-colored blood per rectum. Hemoglobin was 10.6 at the time of presentation and he was given 3 units of FFP's. Medical consult was called for admission and consultation with Dr. Suarez. Hospital Course Hospital Course: Patient was admitted for GI bleed. He was seen by GI. Patient underwent EGD by GI which showed grade 3 esophageal varices. These were banded. His hemoglobin did stabilize. Patient was discharged on PPI and was also started on propanolol as well. Physical Exam Vital Signs: Temp Pulse Resp BP Pulse Ox 98.1 F 76 18 120/68 99 12/02/18 11:38 12/02/18 11:38 12/02/18 11:38 12/02/18 11:38 12/02/18 11:38 Intake & Output 12/01/18 12/02/18 12/03/18 06:59 06:59 06:59 Intake Total 2816 6030 1270 Balance 2816 6030 1270 Weight 185 lb 13.595 oz 185 lb 13.595 oz Results Laboratory Results: 12/02/18 04:51 12/02/18 04:51 12/02/18 12/02/18 04:51 04:51 WBC 2.9 L RBC 2.89 L Hgb 8.6 L Hct 25.0 L MCV 86 MCH 29.8 MCHC 34.4 RDW 18.6 H Plt Count 66 L Seg Neutrophils % 64.1 Lymphocytes % 21.6 Monocytes % 11.3 Eosinophils % 2.4 Basophils % 0.6 Absolute Neutrophils 1.8 Absolute Lymphocytes 0.6 Absolute Monocytes 0.3 Absolute Eosinophils 0.1 Absolute Basophils 0.0 Sodium 140.3 Potassium 4.2 Chloride 111 H Carbon Dioxide 22 Anion Gap 7 BUN 16 Creatinine 1.14 Est GFR ( Amer) > 60 Est GFR (Non-Af Amer) > 60 Glucose 95 Calcium 8.1 L Qualifiers - * PATIENT BEING DISCHARGED WITH ANY OF THE FOLLOWING DIAGNOSIS: No Acute Heart Failure - Is this a Heart Failure Patient?: No LVEF < 40%?: No- if no continue to question #3 3. Anticoagulant therapy for permanect/persistent/paraoxysmal Afib or Aflutter: N/A
== END 2018-12-02 12:54 | disposition home or self-care (01) ==
LOC: ER 01:57 → EH 17:23 → 4N 20:21
PROVIDERS: ADMIT Internal Medicine; ATTEND Internal Medicine
PROC: 30233K1 Transfusion of Nonautologous Frozen Plasma into Peripheral Vein, Percutaneous Approach (ICD-10-PCS; 2018-11-30)
PROC: 0W3P8ZZ Control Bleeding in Gastrointestinal Tract, Via Natural or Artificial Opening Endoscopic (ICD-10-PCS; principal; 2018-12-01 12:30)
DX: K92.2 Gastrointestinal hemorrhage, unspecified (principal); D62 Acute posthemorrhagic anemia; K70.30 Alcoholic cirrhosis of liver without ascites; I85.10 Secondary esophageal varices without bleeding; D69.6 Thrombocytopenia, unspecified; K31.819 Angiodysplasia of stomach and duodenum without bleeding; F17.200 Nicotine dependence, unspecified, uncomplicated; K21.9 Gastro-esophageal reflux disease without esophagitis; I10 Essential (primary) hypertension; F10.21 Alcohol dependence, in remission; R00.0 Tachycardia, unspecified; D68.9 Coagulation defect, unspecified; Z98.890 Other specified postprocedural states; Z79.899 Other long term (current) drug therapy; Z80.0 Family history of malignant neoplasm of digestive organs; Z59.8 Other problems related to housing and economic circumstances
CPT/HCPCS: 99284; 96372; 96361; 96374; 96375; 43255; 43244; 86900; 86901; 36415 ×3; 36430; 86850; 82140; 83690; 83735; 84443; 85025 ×3; 85610 ×2; 85730; 80048; 80053 ×2; 81001; 80307; 83036; 80061; 00731; G0378 ×4; P9017; J0360; J2001; J2354 ×3; J3430; J3475; J3480; S0164 ×3; J2405; J7030 ×3; J7040 ×2; J2704; S0028; J3490; 731

== ENCOUNTER 2018-12-05 08:29 | Emergency (ER) | payer OTHER ==
[2018-12-05 09:20] LABS: ABSOLUTE EOSINOPHILS # (AUTO) 0.2 10^3/uL (0.0-0.6); ABSOLUTE LYMPHOCYTES (AUTO) 1.9 10^3/uL (0.5-4.7); ABSOLUTE MONOCYTES (AUTO) 0.9 10^3/uL (0.1-1.4); ABSOLUTE NEUT (AUTO) 8.6 10^3/uL (1.7-8.2); EOSINOPHILS % (AUTO) 2.1 % (0-6); HEMATOCRIT 26.4 % (37.9-51.0); HEMOGLOBIN 8.9 g/dL (13.5-17.0); LYMPHOCYTES % (AUTO) 16.1 % (13-45); MEAN CORPUSCULAR HEMOGLOBIN 29.1 pg (27.0-33.4); MEAN CORPUSCULAR HGB CONC 33.6 g/dL (32.0-36.0); MEAN CORPUSCULAR VOLUME 87 fl (80-97); MONOCYTES % (AUTO) 7.9 % (3-13); PLATELET COUNT 189 10^3/uL (150-450); RED BLOOD COUNT 3.04 10^6/uL (4.35-5.55); RED CELL DISTRIBUTION WIDTH 18.6 % (11.5-14.0); SEGMENTED NEUTROPHILS % (AUTO) 73.9 % (42-78); TOTAL CELLS COUNTED % (AUTO) 100 %; WHITE BLOOD COUNT 11.6 10^3/uL (4.0-10.5)
--- NOTE | 2018-12-05 09:23 | ER Document Report ---
ED General - General TRAVEL OUTSIDE OF THE [place] IN LAST 30 DAYS: No <PAPITO PITTMAN - Last Filed: 12/05/18 19:51> <SNEHAL RAMAN - Last Filed: 12/06/18 02:48> - General Chief Complaint: Rectal Bleeding Stated Complaint: BLACK STOOL Time Seen by Provider: 12/05/18 09:06 Primary Care Provider: FELICIANO BLAND MD [ACTIVE STAFF] - Follow up as needed - [facility] Notes: Patient is a 48-year-old male with a history of alcohol abuse without intake for over a year, esophageal varices with multiple variceal banding procedures with the last one 2 days ago, cirrhosis who presents complaining primarily of black tarry stool that is been present since last night. Patient states that he does have mild epigastric pain described as dullness. Patient states that the discomfort does not radiate. He had been on a soft diet status post procedure. Patient states that he felt something in his throat and coughed once or twice and noticed a very scant amount of red blood, but nothing since. Patient states that he otherwise is feeling "okay." He is urinating normally. No other concerns or complaints. Denies any headache, fever, neck pain, URI, sore throat, chest pain, palpitations, syncope, shortness of breath, wheeze, dyspnea, nausea/vomiting, urinary retention, dysuria, hematuria, or rash. (PAPITO PITTMAN) - Related Data Allergies/Adverse Reactions: Penicillins Allergy (Verified 12/05/18 08:30) Past Medical History - Social History Smoking Status: Unknown if Ever Smoked Family History: Reviewed & Not Pertinent - Past Medical History Cardiac Medical History: Reports: Hx Hypertension Denies: Hx Coronary Artery Disease, Hx Heart Attack Pulmonary Medical History: Reports: Hx Pneumonia - YEARS AGO Denies: Hx Asthma, Hx Bronchitis Neurological Medical History: Denies: Hx Cerebrovascular Accident, Hx Seizures Renal/ Medical History: Denies: Hx Peritoneal Dialysis GI Medical History: Reports: Hx Cirrhosis Musculoskeletal Medical History: Reports Hx Arthritis - B/L HANDS Psychiatric Medical History: Reports: Hx Depression, Hx Schizophrenia - anti social behavior Past Surgical History: Reports: Hx Orthopedic Surgery - right leg, Other - Banding of the esophageal varices twice - Immunizations Hx Diphtheria, Pertussis, Tetanus Vaccination: Yes <PAPITO PITTMAN - Last Filed: 12/05/18 19:51> Review of Systems - Review of Systems -: Yes All other systems reviewed and negative <PAPITO PITTMAN - Last Filed: 12/05/18 19:51> Physical Exam <PAPITO PITTMAN - Last Filed: 12/05/18 19:51> - Vital signs Vitals: Temp Pulse Resp BP Pulse Ox 98.4 F 92 18 126/79 H 99 12/05/18 08:33 12/05/18 08:33 12/05/18 08:33 12/05/18 08:33 12/05/18 08:33 - Notes Notes: PHYSICAL EXAMINATION: GENERAL: Well-appearing, well-nourished and in no acute distress. HEAD: Atraumatic, normocephalic. EYES: Pupils equal round and reactive to light, extraocular movements intact, sclera anicteric, conjunctiva are normal. ENT: Nares patent and without discharge. oropharynx clear without exudates. No tonsilar hypertrophy or erythema. Moist mucous membranes. NECK: Normal range of motion, supple without lymphadenopathy LUNGS: Breath sounds clear to auscultation bilaterally and equal. No wheezes rales or rhonchi. HEART: Regular rate and rhythm without murmurs, rubs, gallops. ABDOMEN: Soft, nondistended abdomen. No guarding, no rebound. Normal bowel sounds present. No CVA tenderness bilaterally. Very mild epigastric tenderness. Roberson neg. Rectal: + black tarry stool (melena). Guiac + Musculoskeletal: FROM to passive/active. Strength 5+/5. Extremities: No cyanosis, clubbing, or edema b/l. Peripheral pulses 2+. Capillary refill less than 3 seconds. NEUROLOGICAL: Cranial nerves grossly intact. Normal speech, normal gait. PSYCH: Normal mood, normal affect. SKIN: Warm, Dry, normal turgor, no rashes or lesions noted. (PAPITO PITTMAN) Course - Laboratory Result Diagrams: 12/05/18 15:14 12/05/18 09:00 <PAPITO PITTMAN - Last Filed: 12/05/18 19:51> - Laboratory Result Diagrams: 12/05/18 20:50 12/05/18 09:00 <SNEHAL RAMAN - Last Filed: 12/06/18 02:48> - Re-evaluation Re-evalutation: 12/05/18 09:30 Patient is an afebrile, well-hydrated, 48-year-old male who presents with guaiac positive stool with melena noted. Patient has a history of esophageal varices with banding 2 days ago. He is not having any hematemesis or other active bleeding noted aside from the melena. Vitals are currently acceptable. We will call for transfer to another facility as we do not have GI pv design and installation technician. Patient's hemoglobin currently 8.9 and was 8.5 three days ago. 12/05/18 09:36 Call placed to [facility] for transfer and now waiting for call back from Dr. Patino. 12/05/18 09:[address] Patino, she would like him to go to [facility] if possible. 12/05/18 09:42 I called [facility] and they are not taking any medical non-emergent cases (i.e. CVA /STEMI, etc). 12/05/18 09:44 I spoke with [facility] again and they will call me back after I let them know about [facility]. 12/05/18 09:46 I did send a page to Dr. Suarez as this is his patient from 2 days ago, but he is not pv design and installation technician and am not sure if he will call me back. [facility] called me back at the same time and let me know that they only have GI until 12pm today and if we can get him there by then they will be able to accept the patient. They do have a bed for him now, but only if we can find transport. Stat task given to our secretaries who are currently working on the situation. 12/05/18 10:00 I was told that we cannot get ALS transport in time. He cannot go by BLS due to protonix drip. Reviewed with Dr. Pleitez and we do not believe at this time pt meets requirement for flight. He is stable with melena and no other signs of active bleed or unstable vital signs. Call placed to [facility] for transfer. 12/05/18 10:21 I spoke with [facility], who will accept but would like us to try to admit here for continued obs as he is stable and possibly call his GI in the morning. He would like us to check first and then call them back as he states they would just monitor the H:H today and not perform a procedure until tomorrow. 12/05/18 10:28 I spoke with General surgery, Dr. Grullon, to see if he would be willing to perform EGD, but he declined due to recent banding procedure. 12/05/18 10:[address] Martínez, Hospitalist, who states he needs to be transferred and they do not feel comfortable keeping here w/o GI. 12/05/18 10:36 I spoke again with [facility]. They will accept the patient and will call back with room assignment, etc. Reviewed with pt who is in agreement with plan. 12/05/18 10:45 Dr. Suarez called me back and wants the patient transferred. Discussed admitting here for him to get seen later today or tomorrow by him but he would like him transferred. 12/05/18 12:16 Re-eval of patient. No new concerns or complaints. Vitals acceptable. 12/05/18 14:08 Recheck on patient. Pt states that he saw very minimal spots of red blood in his black stool, but is otherwise feeling well. Vitals acceptable. Pt is on a fluid drip and we will give octreotide after review with Dr. Ferreira. Pt to let us know if any further BM with red blood noted. If any recurrence or worsening red blood noted, we will notify [facility]. 12/05/18 15:14 Pt doing well. No recurrence of any red bleeding. Vitals acceptable. 12/05/18 19:21 Pt continues to do well w/o any recurrence of red blood. He has not had to have a BM since earlier this afternoon. Vitals are acceptable w/o significant hypotension, tachycardia, hypoxia. Reviewed with Dr. Ferreira, he can have clear liquid diet for now. Repeat H&H at 9pm if pt is still here which he may be here til tomorrow at this point. 12/05/18 19:55 Transfer of care to [facility]. May consider transfer attempt to [place] in the morning if still present as they did have a bed for him earlier today and see who can take him the soonest. If any worsening bleeding to call [facility] for update, ?consideration of ED to ED if any further red blood/bleeding noted. Continue close observation/monitoring, NPO after midnight, H&H repeats. If any further significant drop in H&H compared to arrival to notify [facility]. (PAPITO PITTMAN) 12/05/18 20:17 Report received from [facility]. Pt resting quietly, no recent BM. 12/05/18 21:46 Repeat H&H 6.8/20.3 with platelets at 75. 2 units of packed cells ordered. [facility] contacted for ED to ED transport, which was accepted by Dr. Debbie Mondragon transport by [facility]. Patient updated on plan of care and agrees. Consent for blood transfusion obtained. 12/06/18 22:25 [facility] at the bedside. patient stable for transfer. (SNEHAL RAMAN) - Vital Signs Vital signs: Temp Pulse Resp BP Pulse Ox 98.4 F 92 13 92/64 L 98 12/05/18 08:33 12/05/18 08:33 12/05/18 22:01 12/05/18 22:01 12/05/18 22:01 12/05/18 21:46 Repeat H&H 6.8/20.3 with platelets at 75. 2 units of packed cells ordered. [facility] contacted for ED to ED transport, which was accepted by Dr. Debbie Mondragon transport by [facility] [facility]. Patient updated on plan of care and agrees. Consent for blood transfusion obtained. (SNEHAL RAMAN) - Laboratory Laboratory results interpreted by ar: 12/05/18 12/05/18 12/05/18 09:00 09:00 09:24 WBC 11.6 H RBC 3.04 L Hgb 8.9 L Hct 26.4 L RDW 18.6 H Plt Count Monocytes % Absolute Neutrophils 8.6 H PT 17.5 H APTT 36.0 H Chloride 109 H BUN 25 H Total Bilirubin 2.5 H Direct Bilirubin 0.9 H AST 73 H Alkaline Phosphatase 128 H Urine Ketones Urine Urobilinogen Urine Ascorbic Acid Crossmatch 12/05/18 12/05/18 12/05/18 09:24 09:52 15:14 WBC RBC 2.92 L Hgb 8.6 L Hct 25.7 L RDW 18.7 H Plt Count 117 L Monocytes % Absolute Neutrophils PT APTT Chloride BUN Total Bilirubin Direct Bilirubin AST Alkaline Phosphatase Urine Ketones TRACE H Urine Urobilinogen 4.0 H Urine Ascorbic Acid 40 H Crossmatch See Detail 12/05/18 20:50 WBC RBC 2.31 L Hgb 6.8 L Hct 20.3 L RDW 18.3 H Plt Count 75 L Monocytes % 14.2 H Absolute Neutrophils PT APTT Chloride BUN Total Bilirubin Direct Bilirubin AST Alkaline Phosphatase Urine Ketones Urine Urobilinogen Urine Ascorbic Acid Crossmatch Critical Care Note - Critical Care Note Total time excluding time spent on procedures (mins): 60 <PAPITO PITTMAN - Last Filed: 12/05/18 19:51> - Critical Care Note Comments: see extensive course notes. consults/re-evals, etc (PAPITO PITTMAN) Discharge <PAPITO PITTMAN - Last Filed: 12/05/18 19:51> <SNEHAL RAMAN - Last Filed: 12/06/18 02:48> - Discharge Clinical Impression: Melena, Upper GI bleed Condition: Stable Disposition: [facility] Referrals: FELICIANO BLAND MD [ACTIVE STAFF] - Follow up as needed
[2018-12-05] MEDS ORDERED: PANTOPRAZOLE SODIUM 40 MG VIAL IV ONE (09:33)
[2018-12-05 09:37] LABS: ALKALINE PHOSPHATASE 128 U/L (38-126); ANION GAP 9 (5-19); ASPARTATE AMINO TRANSFERASE 73 U/L (17-59); BILIRUBIN,DIRECT 0.9 mg/dL (0.0-0.4); BILIRUBIN,TOTAL 2.5 mg/dL (0.2-1.3); BLOOD UREA NITROGEN 25 mg/dL (7-20); CALCIUM 9.2 mg/dL (8.4-10.2); CARBON DIOXIDE 22 mmol/L (22-30); CHLORIDE 109 mmol/L (98-107); GLUCOSE 87 mg/dL (75-110); TOTAL PROTEIN 8.1 g/dL (6.3-8.2)
[2018-12-05 09:51] LABS: INTERNATIONAL RATION (INR) 1.42; PROTHROMBIN TIME 17.5 SEC (11.4-15.4)
[2018-12-05] MEDS: PANTOPRAZOLE SODIUM 40 MG VIAL IV PRN ×2 (10:04→20:22)
[2018-12-05 10:20] LABS: APPEARANCE,URINE CLEAR; BILIRUBIN,URINE NEGATIVE (NEGATIVE); COLOR,URINE YELLOW; GLUCOSE, URINE NEGATIVE (NEGATIVE); KETONES,URINE TRACE mg/dL (NEGATIVE); LEUKOCYTE ESTERASE,URINE NEGATIVE (NEGATIVE); NITRITE,URINE NEGATIVE (NEGATIVE); PROTEIN,URINE NEGATIVE (NEGATIVE); URINE SPECIFIC GRAVITY 1.019
[2018-12-05 15:25] LABS: ABSOLUTE BASOPHILS # (AUTO) 0.1 10^3/uL (0.0-0.2); ABSOLUTE EOSINOPHILS # (AUTO) 0.3 10^3/uL (0.0-0.6); ABSOLUTE LYMPHOCYTES (AUTO) 2.1 10^3/uL (0.5-4.7); ABSOLUTE MONOCYTES (AUTO) 1.2 10^3/uL (0.1-1.4); BASOPHILS % (AUTO) 0.8 % (0-2); EOSINOPHILS % (AUTO) 3.1 % (0-6); HEMATOCRIT 25.7 % (37.9-51.0); HEMOGLOBIN 8.6 g/dL (13.5-17.0); LYMPHOCYTES % (AUTO) 21.9 % (13-45); MEAN CORPUSCULAR HEMOGLOBIN 29.3 pg (27.0-33.4); MEAN CORPUSCULAR HGB CONC 33.4 g/dL (32.0-36.0); MEAN CORPUSCULAR VOLUME 88 fl (80-97); MONOCYTES % (AUTO) 12.5 % (3-13); PLATELET COUNT 117 10^3/uL (150-450); RED BLOOD COUNT 2.92 10^6/uL (4.35-5.55); RED CELL DISTRIBUTION WIDTH 18.7 % (11.5-14.0); SEGMENTED NEUTROPHILS % (AUTO) 61.7 % (42-78); TOTAL CELLS COUNTED % (AUTO) 100 %; WHITE BLOOD COUNT 9.7 10^3/uL (4.0-10.5)
[2018-12-05] MEDS ORDERED: NORMAL SALINE 1000 ML 1,000 ML IV PRN (15:47)
[2018-12-05] MEDS ORDERED: NORMAL SALINE 1000 ML 1,000 ML IV ONE (15:47)
[2018-12-05] MEDS ORDERED: OCTREOTIDE ACETATE INJ/PF 100 MCG/1 ML SDV IV ONE (16:26)
[2018-12-05] MEDS ORDERED: NORMAL SALINE 500 ML with OCTREOTIDE ACETATE 500 MCG IV PRN ×2 (16:27)
[2018-12-05] MEDS ORDERED: OCTREOTIDE ACETATE INJ/PF 100 MCG/1 ML SDV ONE (17:00)
[2018-12-05 21:10] LABS: ABSOLUTE EOSINOPHILS # (AUTO) 0.2 10^3/uL (0.0-0.6); ABSOLUTE LYMPHOCYTES (AUTO) 1.3 10^3/uL (0.5-4.7); ABSOLUTE MONOCYTES (AUTO) 0.6 10^3/uL (0.1-1.4); BASOPHILS % (AUTO) 0.7 % (0-2); EOSINOPHILS % (AUTO) 3.9 % (0-6); HEMATOCRIT 20.3 % (37.9-51.0); LYMPHOCYTES % (AUTO) 31.7 % (13-45); MEAN CORPUSCULAR HEMOGLOBIN 29.4 pg (27.0-33.4); MEAN CORPUSCULAR HGB CONC 33.5 g/dL (32.0-36.0); MEAN CORPUSCULAR VOLUME 88 fl (80-97); MONOCYTES % (AUTO) 14.2 % (3-13); RED BLOOD COUNT 2.31 10^6/uL (4.35-5.55); RED CELL DISTRIBUTION WIDTH 18.3 % (11.5-14.0); SEGMENTED NEUTROPHILS % (AUTO) 49.5 % (42-78); TOTAL CELLS COUNTED % (AUTO) 100 %; WHITE BLOOD COUNT 4.1 10^3/uL (4.0-10.5)
[2018-12-05 21:14] LABS: HEMOGLOBIN 6.8 g/dL (13.5-17.0)
[2018-12-05 21:15] LABS: PLATELET COUNT 75 10^3/uL (150-450)
[2018-12-05] MEDS ORDERED: NORMAL SALINE 250 ML IV PRN (21:27)
[2018-12-05 22:27] VITALS: BP 92/64
== END 2018-12-05 22:27 | disposition short-term general hospital (02) ==
LOC: ER 08:29
DX: K92.1 Melena (principal); K92.2 Gastrointestinal hemorrhage, unspecified; F10.10 Alcohol abuse, uncomplicated; R10.13 Epigastric pain; R04.2 Hemoptysis; I10 Essential (primary) hypertension
CPT/HCPCS: 86900; 86901; 36415; 86850; 83690; 85025; 85610; 85730; 80053; 81001; J2354; S0164; J7030; 96361; 96365; 96366; 96375; 96376; 99291